=== PATIENT | female | born 1970 | race Two or more races ===

== ENCOUNTER 2024-09-01 09:19 | Emergency (ER) | payer MEDICAID, SELFPAY ==
[2024-09-01 09:20] VITALS: BMI 26.8
--- NOTE | 2024-09-01 09:46 | XR_ITS ---
Examination: CT abdomen and pelvis without contrast. Coronal 3-D reconstructions. Sagittal 2-D reconstructions. Date and time of exam:September 01, 2024 1143 hrs. Comparison August 25, 2020 Indications: Right-sided flank and back pain beginning today CTDI: vol (mGy): 8.71 DLP: (mGycm): 507 Technique: Axial images of the abdomen have been obtained, 3 mm slice thickness Intravenous contrast material has not been administered. Low dose protocols were performed. One or more of the following dose reduction techniques were used; automated exposure control, adjustment of the mA and/or KV according to patient size, use of iterative reconstruction technique. Findings: No focal liver or splenic lesions No gallstones No pancreatic or adrenal mass Soft tissue density with opacities within the soft tissue density stable appearance posterior upper right abdomen unclear etiology, posterior to the liver No renal or ureteral calculi Small fat-containing umbilical hernia No pericecal inflammatory change No bowel obstruction or diverticulitis No pelvic mass Urinary bladder intact Impression: No renal or ureteral calculi, no hydronephrosis No CT findings of appendicitis bowel obstruction or diverticulitis Recommend plain abdomen film follow-up to assess the stable soft tissue density with calcifications versus surgical clips posterior to the right lobe liver
[2024-09-01 09:48] VITALS: BP 111/76; PULSE 85; RESP 20; TEMP 36.9; O2SAT 98; BMI 27.6
--- NOTE | 2024-09-01 09:49 | PD.EDRME ---
Rapid Medical Screening Exam RME Arrival date/time: 09/01/24 09:19 54-year-old female presents to the emergency department complains of right flank pain and right-sided back pain Chief Complaint: Abdominal Pain Time Seen by Provider: 09/01/24 09:20
[2024-09-01] MEDS: KETOROLAC INJ 30 MG/ML VIAL IM (10:18)
[2024-09-01] MEDS: HYDROcodone/APAP 5/325 TABLET 1 TAB PO (10:18)
[2024-09-01 10:23] LABS: Basophils % (Auto) 1 % (0-2.5); Eosinophils # (Auto) 0.1 Thou/mm3 (0.0-0.5); Eosinophils % (Auto) 1 % (0-10); Hematocrit 40.6 % (36.0-46.0); Hemoglobin 13.7 g/dL (12.0-16.0); Immature Granulocytes % (Auto) 0 % (0-0); Immature Granulocytes Auto 0.01 Thou/mm3 (0.00-0.00); Lymphocytes # (Auto) 2.5 Thou/mm3 (1.0-4.8); Lymphocytes % (Auto) 34 % (10-50); Mean Corpuscular HGB Conc 33.7 g/dl (31.0-37.0); Mean Corpuscular Hemoglobin 31.1 pg (25.0-35.0); Mean Corpuscular Volume 92 fL (80-100); Monocytes # (Auto) 0.6 Thou/mm3 (0.0-0.8); Monocytes % (Auto) 8 % (0-12); Neutrophils # (Auto) 4.1 Thou/mm3 (1.8-7.7); Neutrophils % (Auto) 57 % (37-80); Nucleated Red Blood Cell % 0 /100 WBC (0); Platelet Count 321 Thou/mm3 (140-440); RDW Standard Deviation 47.1 fL (36.4-46.3); White Blood Count 7.3 Thou/mm3 (3.6-11.0)
[2024-09-01 10:41] LABS: Alanine Aminotransferase 42 U/L (10-49); Albumin, Serum 4.7 gm/dL (3.5-5.0); Albumin/Globulin Ratio 1.4 (1.2-2.2); Alkaline Phosphatase 74 U/L (46-116); Anion Gap 10 (7-16); Aspartate Amino Transferase 29 U/L (0-34); BUN/Creatinine Ratio 14 Ratio (12-20); Bilirubin,Total 0.6 mg/dL (0.3-1.2); Blood Urea Nitrogen 10 mg/dL (9-23); Calcium 9.7 mg/dL (8.3-10.6); Calcium (Corrected) 9.7 mg/dL (8.5-10.1); Carbon Dioxide 26.3 mMol/L (20.0-31.0); Chloride 107 mMol/L (98-107); Creatinine (Component) 0.7 mg/dL (0.6-1.3); Estimated Creatinine Clearance 95.5 mL/min (>60); Globulin 3.4 gm/dL (2.3-3.5); Glucose 95 mg/dL (74-106); Lipase 26 U/L (12-53); Osmolality,Calculated 283 (275-295); Potassium 3.8 mMol/L (3.4-5.1); Sodium 143 mMol/L (136-145); Total Protein 8.1 gm/dL (5.7-8.2); eGFR > 60 See Note
[2024-09-01 10:53] LABS: Collection Type, Urine Clean Catch; RBC,Urine 0 /hpf (0-3)
[2024-09-01 11:02] LABS: Bilirubin,Urine Negative (Negative); Blood,Urine Negative (Negative); Clarity,Urine Clear (Clear/Hazy); Color,Urine Colorless (Lt Yel-Yel); Culture Indicated,Urine Not Indicated; Glucose, Urine Negative (Negative); HCG Qualitative,Urine Negative; Ketones,Urine Negative (Negative); Leukocyte Esterase,Urine Negative (Negative); Nitrite,Urine Negative (Negative); Protein,Urine Negative (Neg - Trace); Specific Gravity,Urine 1.007 (1.001-1.035); Squamous Epithelial Cell,Urine < 1 /hpf (0-5); Urobilinogen,Urine Negative mg/dL (0.0-1.0); WBC,Urine < 1 /hpf (0-5)
[2024-09-01 15:47] VITALS: BP 107/67; PULSE 76; RESP 16; TEMP 36.7; O2SAT 98
--- NOTE | 2024-09-01 16:05 | EDNOTE_ITS ---
<Statement entered by Rut Galindo MD - 09/01/24 17:06> As co-signing physician, I was present and available for consult prn. I concur with the plan and care as documented by the midlevel provider. ED General RME/HPI General Chief complaint: Abdominal Pain Stated complaint: RIGHT FLANK PAIN SINCE YESTERDAY Time Seen by Provider: 09/01/24 09:20 Arrival date/time: 09/01/24 09:19 CC: Right back and flank pain HPI ongoing for past several days patient is hurt when she takes a deep breath, denies fever chills shortness of breath difficulty breathing or chest pain. OTC medicines from [place] she took do not help. Patient denies all other symptoms. RME / HPI RME / HPI narrative: 09/01/24 09:19 54-year-old female presents to the emergency department complains of right flank pain and right-sided back pain Related Data Previous Rx's ?Medication ?Instructions ?Recorded omeprazole 20 mg tablet,delayed 20 mg PO QDAY #15 tabs 08/25/20 release meloxicam 7.5 mg tablet 7.5 mg PO BID #14 tabs 11/22 cyclobenzaprine 10 mg tablet 10 mg PO TID #20 tabs 02/17 meloxicam 7.5 mg tablet 7.5 mg PO QDAY #10 tabs 02/17 Allergies Allergy/AdvReac Type Severity Reaction Status Date / Time Penicillins Allergy Unknown Verified 09/01/24 09:22 Review of Systems Review of Systems Narrative Review of Systems: GEN: No fever, no chills, no weight loss EYES: No discharge, no visual changes, no pain HEENT: No ear pain, no congestion, no sore throat PULM: No shortness of breath, no cough, no congestion CV: No chest pain, no dyspnea on exertion, no palpitations GI: No nausea, no vomiting, no diarrhea, no pain, no constipation : No frequency, no urgency, no dysuria MUSC/SKEL: No joint pain, + back pain SKIN: No rash PSYCH: No hallucinations, no depression HEME/LYMPH: No easy bleeding or bruising tendencies NEURO: No weakness, no headache Past Medical History Past Medical History CARDIAC: Negative Cardiac Disorders or Congestive Heart Failure RESPIRATORY: Positive Asthma; Negative Chronic Obstructive Pulmonary Disease (COPD) GASTROINTESTINAL: Positive Gastrointestinal Disorders (gastritis) GENITOURINARY: Negative Renal Disease ENDOCRINE: Negative Diabetes Mellitus Type 1 or Diabetes Mellitus Type 2 HEMATOLOGIC: Negative Sickle Cell Disease Social History SMOKING STATUS: Never smoker SUBSTANCE USE: does not use ED Exam Narrative Physical exam: [General: Not in any acute distress Head normocephalic HEENT: Within acceptable limits Neck is supple nontender Chest equal chest rise nontender to palpation Respiratory: Clear to auscultation no wheezes crackles or rubs CV: Rate rhythm is regular no murmurs rubs or clicks Abdomen is distended secondary to body habitus soft nontender no masses positive bowel sounds all 4 quadrants Back: No CVA tenderness no spinous process tenderness from cervical spine thoracic and lumbar spine Skin: Intact no petechiae rash induration ulceration or crepitus Extremities: Moving all extremity against resistance cap refill less than 2 seconds neurosensory intact Neuro: Awake alert oriented x3 Glascow coma 15 no focal deficits] Course Quality Measures none Orders Category Date Time Status CT abdomen pelvis wo con Stat Exams 09/01/24 09:46 Completed CBC Stat Lab 09/01/24 10:06 Completed Comprehensive Metabolic Panel Stat Lab 09/01/24 10:06 Completed HCG Qualitative,Urine Stat Lab 09/01/24 10:49 Completed Lipase Stat Lab 09/01/24 10:06 Completed UA, C/S IF [Urinalysis, C/S if Indicated] Stat Lab 09/01/24 10:49 Completed HYDROcodone*/APAP 5/325 [[place] 5/325] Med 09/01/24 09:46 Discontinued 1 tab PO X1 ONE Ketorolac Inj [Toradol Inj] Med 09/01/24 09:46 Discontinued 30 mg IM X1 ONE Vital Signs Vital signs: Vital Signs Temperature 98.5 F 09/01/24 09:48 Pulse Rate 85 09/01/24 09:48 Respiratory Rate 20 09/01/24 09:48 Blood Pressure 111/76 09/01/24 09:48 Pulse Oximetry (%) 98 09/01/24 09:48 Oxygen Delivery Method Room Air 09/01/24 09:48 [facility] Patient data External records reviewed:: [facility] previous records Clinical information provided by:: patient Social determinants that could affect healthcare access:: none Patient has the following chronic illnesses:: None How is presenting disease/condition affected by chronic disease/condition?: u neffected by Evaluation data The following diagnostics were reviewed and interpreted by me:: lab results and radiology exam(s) Lab and/or radiology exams considered but not ordered:: CBC shows no acute leukocytosis anemia thrombocytopenia CMP shows no acute electrolyte imbalances renal impairment transaminitis or T. bili ovation Urine is negative for UTI CT abdomen pelvis is negative for any acute finding quires emergent or immediate intervention. Interpretation Summary: Low back or flank pain Medications Medications considered but not ordered:: None Medication administrations:: Medication Administration History Discontinued Medications Hydrocodone Bitart/Acetaminophen (Hydrocodone/Apap 5/325 Tablet) 1 tab PO X1 ONE Stop: 09/01/24 09:47 Last Admin: 09/01/24 10:18 Dose: 1 tab Documented By: KERRY Ketorolac Tromethamine (Ketorolac Inj 30 Mg/Ml Vial) 30 mg IM X1 ONE Stop: 09/01/24 09:47 Last Admin: 09/01/24 10:18 Dose: 30 mg Documented By: KERRY None Consultations Consultation(s) initiated? (list below): No Diagnosis Differential Diagnosis ED Complaint MDM: Urolithiasis hydroureter hydronephrosis Most likely diagnosis given after review of the tests above:: Back pain I sent suspect this is musculoskeletal in nature. Admission Indicated Admission indicated?: not indicated Explain why admission is indicated or not indicated:: Stable for outpatient follow-up Admission Request Was there a request for admission?: No Disposition Plan Disposition Plan: Discharge Discharge Attestation Discharge Attestation: The patient and all family members were given an opportunity to ask questions and understood the discharge instructions. Discharge instructions specifically effects, indications for sooner follow up or return to the emergency department, and the expected course of current diagnosis. Patient condition: Stable Medical Decision Making Differential Diagnosis Differential Diagnosis: Urolithiasis hydroureter hydronephrosis Lab Data 09/01/24 10:06 09/01/24 10:06 Labs: Lab Results 09/01/24 09/01/24 Range/Units 10:06 10:49 WBC 7.3 (3.6-11.0) Thou/mm3 RBC 4.40 (4.00-5.20) Miln/mm3 Hgb 13.7 (12.0-16.0) g/dL Hct 40.6 (36.0-46.0) % MCV 92 (80-100) fL MCH 31.1 (25.0-35.0) pg MCHC 33.7 (31.0-37.0) g/dl RDW Std Deviation 47.1 H (36.4-46.3) fL Plt Count 321 (140-440) Thou/mm3 Neut % (Auto) 57 (37-80) % Lymph % (Auto) 34 (10-50) % Levy % (Auto) 8 (0-12) % Eos % (Auto) 1 (0-10) % Baso % (Auto) 1 (0-2.5) % Neut # (Auto) 4.1 (1.8-7.7) Thou/mm3 Lymph # (Auto) 2.5 (1.0-4.8) Thou/mm3 Levy # (Auto) 0.6 (0.0-0.8) Thou/mm3 Eos # (Auto) 0.1 (0.0-0.5) Thou/mm3 Baso # (Auto) 0.0 (0.0-0.2) Thou/mm3 Immature Gran # (Auto) 0.01 H (0.00-0.00) Thou/mm3 Absolute Nucleated RBC 0.00 (0.00-0.00) Thou/mm3 Immature Gran % 0 (0-0) % Nucleated RBC % 0 (0) /100 WBC Sodium 143 (136-145) mMol/L Potassium 3.8 (3.4-5.1) mMol/L Chloride 107 (98-107) mMol/L Carbon Dioxide 26.3 (20.0-31.0) mMol/L Anion Gap 10 (7-16) BUN 10 (9-23) mg/dL Creatinine 0.7 (0.6-1.3) mg/dL Estim Creat Clear Calc 95.5 (>60) mL/min eGFR > 60 (60 - ) See Note BUN/Creatinine Ratio 14 (12-20) Ratio Glucose 95 (74-106) mg/dL Calculated Osmolality 283 (275-295) Calcium 9.7 (8.3-10.6) mg/dL Corrected Calcium 9.7 (8.5-10.1) mg/dL Total Bilirubin 0.6 (0.3-1.2) mg/dL AST 29 (0-34) U/L ALT 42 (10-49) U/L Alkaline Phosphatase 74 (46-116) U/L Total Protein 8.1 (5.7-8.2) gm/dL Albumin 4.7 (3.5-5.0) gm/dL Globulin 3.4 (2.3-3.5) gm/dL Albumin/Globulin Ratio 1.4 (1.2-2.2) Lipase 26 (12-53) U/L Ur Collection Type Clean Catch Urine Color Colorless A (Lt Yel-Yel) Urine Clarity Clear (Clear/Hazy) Urine pH 7.0 (5.0-7.0) Ur Specific [place] 1.007 (1.001-1.035) Urine Protein Negative (Neg - Trace) Urine Glucose (UA) Negative (Negative) Urine Ketones Negative (Negative) Urine Blood Negative (Negative) Urine Nitrite Negative (Negative) Urine Bilirubin Negative (Negative) Urine Urobilinogen (Auto) Negative (0.0-1.0) mg/dL Ur Leukocyte Esterase Negative (Negative) Urine RBC 0 (0-3) /hpf Urine WBC < 1 (0-5) /hpf Ur Squamous Epith Cells < 1 (0-5) /hpf Urine Bacteria None (None) Ur Culture Indicated? Not Indicated Urine HCG, Qual Negative Discharge Plan Plan Patient Disposition: HOME (Self Care) Patient condition on transfer: Stable Prescriptions/Referrals Prescriptions/Med Rec: New meloxicam 7.5 mg tablet 7.5 mg PO QDAY Qty: 10 0RF cyclobenzaprine 10 mg tablet 10 mg PO TID Qty: 20 0RF No Action omeprazole 20 mg tablet,delayed release (DR/EC) 20 mg PO QDAY Qty: 15 0RF meloxicam 7.5 mg tablet 7.5 mg PO BID Qty: 14 0RF Referrals: Emil Galloway MD [Primary Care Provider] - In 1 week Problem List Clinical Impression: Back pain Patient/Caregiver Discharge Instructions Education Materials: ED Back Pain (Acute or Chronic) Print Language: Divehi Stand Alone Forms: Bella Award Info., Patient Portal Info Letter, Work/School Release PA/SENIOR SAFETY MANAGEMENT CONSULTANT Supervising Physician PA/SENIOR SAFETY MANAGEMENT CONSULTANT Supervising Physician: Eros Leggett ENP
== END 2024-09-01 16:30 | disposition home or self-care (01) ==
PROVIDERS: Nurse Practitioner Primary Care; Emergency Provider Emergency Medicine; PCP Family Medicine
DX: M54.89 Other dorsalgia (principal)
CPT/HCPCS: 36415; 74176; 80053; 81001; 81025; 83690; 85025; 96372; 99284; J1885; A9270